=== PATIENT | male | born 1955 | race Caucasian/White ===

== ENCOUNTER 2024-09-02 12:59 | Emergency (ER) | payer OTHER, SELFPAY ==
[2024-09-02 13:09] VITALS: BP 129/73
[2024-09-02 14:58] VITALS: BMI 32.1
--- NOTE | 2024-09-02 14:59 | ED.MUSCINJ ---
HPI-Injury
General
Chief Complaint: Fall
Source: patient
Exam Limitations: none
Time Seen by Provider: 09/02/24 14:11
History of Present Illness-Injury
Initial Injury comments:
69-year-old male not anticoagulated presents after slip and fall. He was walking on slippery metal and fell backwards. He stopped his fall with his left hand but still hit his head. He also hit his left knee. He states his left ring finger was
crooked of which she straightened it out. His states he was unresponsive for short period time after the fall. No chest pain or shortness of breath. Last tetanus unknown. No other complaints
Phy Exam
Physical Exam
Physical Exam:
General: Well-appearing male no acute respiratory distress
HEENT: Normocephalic atraumatic pupils equal round reactive to light
Heart: RRR, no murmurs
Lungs; CTA bilateral
Musculoskeletal exam: The spine is nontender. His left ring and middle fingers are slightly swollen and ecchymotic good range of motion all fingers left hand
Skin: Transverse laceration left middle finger just distal to the DIP joint measuring 2 cm no tendon involvement
Injury Course
Orders/Labs/Results
Orders:
Orders
09/02/24 13:18
Knee, Left 4 or More Views [CR Knee - Left 4 Or More View*] Urgent
Comment:
Reason For Exam: fall, swelling
09/02/24 14:06
CR Hand - Left Min 3 Views Urgent
Reason For Exam: DISLOCATED LEFT 4TH/LACERATION LEFT 3RD
09/02/24 14:40
CT Head W/o Iv Contrast Urgent
Comment:
Reason For Exam: fall
09/02/24 14:58
Tetanus/Diphth/Acelpertussis [Adacel] 0.5 ml IM .ONCE ONE
MDM/Problems Addressed
Differential Diagnosis Includes:
Slip and fall. Patient reported a deformed ring finger on the left signed of which he put back in place. He is still swollen ecchymotic over the ring and middle fingers. He also has left knee discomfort after a fall and hit his head. CT head
pending x-ray of the knee and the hand were ordered through triage which I personally reviewed and there is no fracture or dislocation. The wound was copiously irrigated with saline anesthetized in a local fashion using 1% lidocaine and closed with
4-0 Prolene sutures. 4 sutures were required
Tetanus vaccine updated
*Critical Care Note
Total Time (30-74mins, 75-104mins- exclusive of procedures): Not Applicable
Update Note
Update Note:
CT of the head was negative. Patient reassured. Finger was dressed with a gauze wrap. Tetanus vaccine updated. He was discharged with wound care instructions
ED Attending Note
-
Portions of this chart may have been created with voice recognition software.� Occasional wrong word or��sound alike� substitutions may have occurred due to the inherent limitations of voice recognition software.
Discharge Plan
Departure
Patient Disposition: Home (Routine Discharge)
Date of Disposition: 09/02/24
Time of Disposition: 16:36
Patient with high blood pressure during this ER visit?: No
Discharge Problem:
Laceration
Instructions: Laceration Repair With Stitches (DC)
Activity Restrictions/Additional Instructions:
Have sutures removed in 12 to 14 days. Watch for signs of infection. Pat dry after shower. May use Tylenol or ibuprofen for aches or pain
Interventions
Interventions:
*Risk Screen - Suicide Last Done: 09/02/24 13:09
*General Assessment Last Done: 09/02/24 14:58
*Neglect/Abuse Screening Last Done: 09/02/24 13:09
ED- Fall Risk Assessment Last Done: 09/02/24 14:58
*ED COVID-19 Vaccine History Last Done: 09/02/24 14:58
ED-Musculoskeletal Assessment Last Done: 09/02/24 14:58
ED- Neurological Assessment Last Done: 09/02/24 14:58
ED-Skin Assessment Last Done: 09/02/24 15:01
Discharge Date and Time
Print Language: TONGAN
[2024-09-02] MEDS: ADACEL 0.5 ML IM (15:05)
[2024-09-02 16:45] VITALS: BP 125/70
== END 2024-09-02 16:50 | disposition home or self-care (01) ==
LOC: EMR 12:59
PROVIDERS: EMERGENCY PHYSICIAN Student in an Organized Health Care Education/Training Program; FAMILY PHYSICIAN Internal Medicine
DX: S61.213A Laceration without foreign body of left middle finger without damage to nail, initial encounter (principal); S09.90XA Unspecified injury of head, initial encounter; W00.2XXA Other fall from one level to another due to ice and snow, initial encounter; Z23 Encounter for immunization
CPT/HCPCS: 99285; 12001; 90471; 70450; 73130; 73564; 90715